=== PATIENT | female | born 1975 | race Caucasian/White ===

== ENCOUNTER 2022-03-25 18:33 | Emergency (ER) | payer OTHER ==
[2022-03-25] MEDS: Metoprolol Tartrate 5 MG/5 ML SDV IVPUSH ONE ×2 (18:35→19:17)
[2022-03-25] MEDS ORDERED: Sodium Chloride 0.9% 10 ML Syringe FLUSH PRN (18:48)
[2022-03-25] MEDS ORDERED: LORazepam 2 MG/ML SDV IVPUSH ONE (18:51)
[2022-03-25] MEDS: Propofol 200 MG/20 ML SDV IVPUSH SCH ×3 (18:57→19:04)
[2022-03-25] MEDS: fentaNYL 100 MCG/2 ML SDV IVPUSH PRN ×2 (19:06→19:09)
[2022-03-25 19:07] LABS: TROPONIN I HIGH SENSITIVITY 41.2 pg/ml (<=60.4)
[2022-03-25] MEDS ORDERED: Metoprolol Tartrate 5 MG in Sodium Chloride 0.9% 50 ML IV ONE (19:10)
[2022-03-25] MEDS ORDERED: Morphine 4 MG/ML VIAL IVPUSH ONE (19:21)
== END 2022-03-25 20:25 | disposition home or self-care (01) ==
LOC: LB.ED 18:33
DX: I48.91 Unspecified atrial fibrillation (principal); Z88.8 Allergy status to other drugs, medicaments and biological substances
CPT/HCPCS: 36415; 80048; 83735; 84100; 84484; 85027; 92960; 93005; 96365; 96375; 96376; 99285-25; J2060; J2270; J2704; J3010; J3475; J3490